=== PATIENT | female | born 1995 | race African-American/Black ===

== ENCOUNTER 2018-02-23 11:48 | Emergency (ER) | payer OTHER ==
--- NOTE | 2018-02-23 12:47 | UC ---
Complaint Female HPI - HPI Summary HPI Summary: Pt c/o sudden onset of dysuria. X 3 days. Pt also has concern for STD's. Denies known exposure or recent exposure. - History Of Current Complaint Stated Complaint: URINARY Time Seen by Provider: 02/23/18 12:05 Hx Obtained From: Patient Hx Last Menstrual Period: 02/11/18 ?: No Onset/Duration: Sudden Onset, Lasting Days, Still Present Timing: Intermittent Severity Initially: Mild Severity Currently: Mild Pain Intensity: 0 Character: Dull, Burning Aggravating Factor(s): Urination Associated Signs And Symptoms: Positive: Negative - Risk Factors Ectopic Risk Factor: Negative Ovarian Torsion Risk Factor: Negative - Allergies/Home Medications Allergies/Adverse Reactions: Allergies Allergy/AdvReac Type Severity Reaction Status Date / Time No Known Allergies Allergy Verified 02/23/18 12:08 PMH/Surg Hx/FS Hx/Imm Hx Previously Healthy: Yes - Surgical History Surgical History: None - Family History Known Family History: Positive: Cardiac Disease - Social History Occupation: Student Lives: With Family Alcohol Use: Occasionally Substance Use Type: None Smoking Status (MU): Never Smoked Tobacco Have You Smoked in the Last Year: No Review of Systems Constitutional: Negative Skin: Negative Eyes: Negative ENT: Negative Respiratory: Negative Cardiovascular: Negative Gastrointestinal: Negative Genitourinary: Dysuria Motor: Negative Neurovascular: Negative Musculoskeletal: Negative Neurological: Negative Psychological: Negative Is Patient Immunocompromised?: No All Other Systems Reviewed And Are Negative: Yes Physical Exam Triage Information Reviewed: Yes Appearance: Well-Appearing Vital Signs: Initial Vital Signs Temp 98.5 F 02/23/18 12:06 Pulse 105 02/23/18 12:06 Resp 17 02/23/18 12:06 BP 116/79 02/23/18 12:06 Pulse Ox 100 02/23/18 12:06 Vital Signs Reviewed: Yes Eye Exam: Normal ENT Exam: Normal ENT: Positive: Hearing grossly normal Dental Exam: Normal Neck exam: Normal Respiratory Exam: Other Respiratory: Positive: No respiratory distress Cardiovascular Exam: Normal Abdominal Exam: Normal Abdomen Description: Positive: Nontender Musculoskeletal Exam: Normal Neurological Exam: Normal Psychological Exam: Normal Skin Exam: Normal Complaint Female Dx - Differential Dx/Diagnosis Differential Diagnosis/HQI/PQRI: Urinary Tract Infection Provider Diagnoses: UTI Discharge - Sign-Out/Discharge Documenting (check all that apply): Discharge/Admit/Transfer - Discharge Plan Condition: Stable Disposition: HOME Prescriptions: Cephalexin CAP* [Keflex 500 CAP*] 500 mg PO Q8H #15 cap Fluconazole 100 MG TAB* [Diflucan 100 MG TAB*] 100 mg PO DAILY #2 tab Patient Education Materials: Urinary Tract Infection in Women (ED) Referrals: Non Staff,Doctor [Primary Care Provider] - - Billing Disposition and Condition Condition: STABLE Disposition: Home
== END 2018-02-23 12:55 | disposition home or self-care (01) ==
LOC: UCCORT 11:48
DX: N39.0 Urinary tract infection, site not specified (principal)
CPT/HCPCS: 81003; 87086; 99202; G0463

== ENCOUNTER 2018-03-25 14:23 | Emergency (ER) | payer OTHER ==
[2018-03-25 15:08] VITALS: BP 120/61
--- NOTE | 2018-03-25 15:50 | UC ---
Complaint Female HPI - HPI Summary HPI Summary: unprotected sexual contact, single sexual partner, without symptoms. No fever, no chills or dysuria - History Of Current Complaint Chief Complaint: UCGU Stated Complaint: FEMALE COMP Time Seen by Provider: 03/25/18 15:27 Hx Obtained From: Patient Hx Last Menstrual Period: last regular period 02/07/18 Onset/Duration: Sudden Onset Timing: Constant Pain Intensity: 0 Associated Signs And Symptoms: Positive: Negative - Risk Factors Ectopic Risk Factor: Negative Ovarian Torsion Risk Factor: Negative - Allergies/Home Medications Allergies/Adverse Reactions: Allergies Allergy/AdvReac Type Severity Reaction Status Date / Time No Known Allergies Allergy Verified 03/25/18 15:02 Home Medications: Home Medications NK [No Home Medications Reported] 03/25/18 [History Confirmed 03/25/18] PMH/Surg Hx/FS Hx/Imm Hx Previously Healthy: Yes - Surgical History Surgical History: None - Family History Known Family History: Positive: Cardiac Disease - Social History Alcohol Use: Occasionally Substance Use Type: None Smoking Status (MU): Never Smoked Tobacco Have You Smoked in the Last Year: No Physical Exam Triage Information Reviewed: Yes Appearance: Well-Appearing, No Pain Distress Vital Signs: Initial Vital Signs Temp 36.6 C 03/25/18 15:03 Pulse 79 03/25/18 15:03 Resp 20 03/25/18 15:03 BP 120/61 03/25/18 15:03 Pulse Ox 100 03/25/18 15:03 Vital Signs Reviewed: Yes Eye Exam: Normal ENT: Positive: Normal ENT inspection Respiratory: Positive: Chest non-tender Abdominal Exam: Normal Abdomen Description: Positive: Nontender Bowel Sounds: Positive: Present Musculoskeletal Exam: Normal Discharge - Discharge Plan Referrals: No Primary Care Phys,NOPCP [Primary Care Provider] -
[2018-03-25] MEDS ORDERED: cefTRIAXone VIAL(*) 250 MG VIAL IM ONE (16:21)
--- NOTE | 2018-03-27 07:17 | UC ---
- Progress Note Progress Note: patient with gardnarellla vaginalis seen on vaginal DNA testing from 03/25/18. start flagyl 500mg bid for 7 days Discharge - Sign-Out/Discharge Documenting (check all that apply): Post-Discharge Follow Up - start flagyl for G. vaginalis 500mg bid for 7 days. - Discharge Plan Condition: Good Disposition: HOME Prescriptions: DOXYcycline CAP(*) [DOXYcycline 100MG CAP(*)] 100 mg PO DAILY #14 cap Patient Education Materials: Chlamydia (ED), Sexually Transmitted Diseases (ED) Referrals: No Primary Care Phys,NOPCP [Primary Care Provider] - - Billing Disposition and Condition Condition: GOOD Disposition: Home
== END 2018-03-25 17:15 | disposition home or self-care (01) ==
LOC: UCCORT 14:23
DX: N76.0 Acute vaginitis (principal); Z01.89 Encounter for other specified special examinations
CPT/HCPCS: 36415; 81003; 84702; 86592; 86703; 87086; 87480; 87491; 87510; 87591; 87660; 96372; 99212; G0463; J0696

== ENCOUNTER 2019-06-27 16:57 | Emergency (ER) | payer MEDICAID, OTHER ==
[2019-06-27 17:27] VITALS: BP 138/85
--- NOTE | 2019-06-27 17:56 | UC ---
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 Had unprotected intercourse one week ago. Hx of Chlamydia treated within the past 6 months (but not within the past 6 weeks). More recently has had discomfort in the pelvis following intercourse. - History Of Current Complaint Chief Complaint: UCGU Stated Complaint: PELVIC PAIN Time Seen by Provider: 06/27/19 17:46 Hx Obtained From: Patient Hx Last Menstrual Period: 05/31/19 Onset/Duration: Gradual Onset, Lasting Days - about 6 or 7. Timing: Constant Severity Initially: Mild Severity Currently: Mild Pain Intensity: 4 Character: Cramping - suprapubic area Aggravating Factor(s): Nothing Alleviating Factor(s): Nothing Associated Signs And Symptoms: Positive: Vaginal Discharge. Negative: Fever, Back Pain, Nausea, Vomiting(# Of Episodes =), Genital Swelling, Genital Blisters Related Hx: Prior STD Hx - Chlamydia treated within the past 6 months. - Risk Factors Ectopic Risk Factor: Negative Ovarian Torsion Risk Factor: Negative - Allergies/Home Medications Allergies/Adverse Reactions: Allergies Allergy/AdvReac Type Severity Reaction Status Date / Time No Known Allergies Allergy Verified 06/27/19 17:27 Home Medications: Home Medications NK [No Home Medications Reported] 06/27/19 [History Confirmed 06/27/19] PMH/Surg Hx/FS Hx/Imm Hx Previously Healthy: Yes - Surgical History Surgical History: None - Family History Known Family History: Positive: Cardiac Disease - Social History Occupation: Student Lives: Dormitory/Roommates Alcohol Use: Occasionally Substance Use Type: None Smoking Status (MU): Never Smoked Tobacco Have You Smoked in the Last Year: No Review of Systems All Other Systems Reviewed And Are Negative: Yes Constitutional: Positive: Negative Skin: Positive: Negative Eyes: Positive: Negative ENT: Positive: Negative Respiratory: Positive: Negative Cardiovascular: Positive: Negative Gastrointestinal: Positive: Negative Genitourinary: Positive: Vaginal/Penile Discharge. Negative: Dysuria, Frequency , Urgency, Abnormal Bleeding Motor: Positive: Negative Neurovascular: Positive: Negative Musculoskeletal: Positive: Negative Neurological: Positive: Negative Psychological: Positive: Negative Is Patient Immunocompromised?: No Physical Exam Triage Information Reviewed: Yes Appearance: Well-Appearing, No Pain Distress Vital Signs: Initial Vital Signs Temp 99.1 F 06/27/19 17:19 Pulse 95 06/27/19 17:19 Resp 24 06/27/19 17:19 BP 138/85 06/27/19 17:19 Pulse Ox 100 06/27/19 17:19 Eye Exam: Normal ENT: Positive: Pharynx normal Neck: Positive: Supple, Nontender, No Lymphadenopathy Respiratory: Positive: Lungs clear, Normal breath sounds Cardiovascular: Positive: RRR, No Murmur Abdomen Description: Positive: Nontender, No Organomegaly, Soft Pelvic Exam: Positive: External Exam Normal, No Cerv. Motion Tender, Discharge - mild to moderate white cervical discharge, with cervical erythema.. Negative : Active Bleeding, Tender w/ Cervical Motion, Tender Uterus, Ulcers Musculoskeletal Exam: Normal Neurological Exam: Normal Psychological Exam: Normal Skin Exam: Normal Complaint Female Dx - Course Course Of Treatment: Discussed symptoms, and she would like to treat for possible Chlamydia given her symptoms. Urine culture, GC/Chlamydia and Affirm tests pending, including Trichomonas. - Differential Dx/Diagnosis Differential Diagnosis/HQI/PQRI: Cervicitis, Sexually Transmitted Disease, Urinary Tract Infection Provider Diagnosis: Cervicitis Discharge ED - Sign-Out/Discharge Documenting (check all that apply): Patient Departure All imaging exams completed and their final reports reviewed: No Studies - Discharge Plan Condition: Good Disposition: HOME Patient Education Materials: Cervicitis (ED) Referrals: No Primary Care Phys,NOPCP [Primary Care Provider] - Additional Instructions: As reviewed, you have been treated presumptively for Chlamydia given the symptoms and findings. Confirmatory cultures are pending, along with testing for Trichomonas, vaginosis and yeast. Urine culture is also pending. - Billing Disposition and Condition Condition: GOOD Disposition: Home
[2019-06-27] MEDS ORDERED: Azithromycin TAB* 250 MG PO ONE (18:11)
[2019-06-29 13:22] LABS: Chlamydia trachomatis NAA Negative (Negative); Neisseria gonorrhoeae (GC) NAA Negative (Negative)
== END 2019-06-27 18:25 | disposition home or self-care (01) ==
LOC: UCCORT 16:57
DX: N72 Inflammatory disease of cervix uteri (principal)
CPT/HCPCS: 81003; 84702; 87086; 87480; 87491; 87510; 87591; 87661; 99212; A9270-GY; G0463